=== PATIENT | male | born 1970 | race Caucasian/White ===

== ENCOUNTER 2024-03-07 23:42 | Emergency (ER) | payer OTHER ==
[~2024-03-07] VITALS: Ht 182.8 cm; Wt 81.6 kg
[~2024-03-07 23:42] MED LIST: FLOMAX0.4 MG PO; HYDROCODONE BIT1 T11 PO; MOTRIN600 MG PO; NKHM PO; NORCO 325 MG-51 TAB PO
[2024-03-08 00:15] LABS: BILIRUBIN Negative (Negative); BLOOD Negative (Negative); CLARITY Clear (Clear); COLOR Yellow (Yellow); GLUCOSE Negative (Negative); KETONE Trace (Negative); LEUKO ESTERASE Negative (Negative); NITRITE Negative (Negative); PH 5.5 (4.5-8.0); SPECIFIC GRAVITY 1.025 (1.001-1.030)
[2024-03-08 00:26] LABS: RBC 0-2 rbc/hpf (0-2); WBC 0-2 wbc/hpf (0-5)
[2024-03-08] MEDS ORDERED: AZITHROMYCIN 250 MG TAB PO ONE (00:35)
== END 2024-03-08 00:47 | disposition home or self-care (01) ==
LOC: ED 23:42
PROVIDERS: Internal Medicine
DX: A59.9 Trichomoniasis, unspecified (principal)

== ENCOUNTER 2024-06-06 03:51 | Inpatient (IN) | payer OTHER ==
[~2024-06-06] VITALS: Ht 180.3 cm; Wt 81.8 kg
[2024-06-06 03:58] VITALS: BP 95/50
[2024-06-06 04:42] LABS: BASO # 0.1 10*3/uL (0.0-0.1); EOS # 0.5 10*3/uL (0.0-0.4); EOS % 6.3 % (1.0-4.0); HEMATOCRIT 40.4 % (42.0-52.0); MEAN CELL VOLUME 95.1 fl (80.0-94.0); MEAN CORPUSCULAR HGB 31.1 pg (27.0-31.0); MEAN CORPUSCULAR HGB CONC 32.7 g/dl (33.0-37.0); MEAN PLATELET VOLUME 9.2 fl (9.6-12.3); MONO # 0.6 10*3/uL (0.1-1.0); MONO % 8.2 % (3.0-9.0); NEUT # 4.9 10*3/uL (2.3-7.9); NEUT % 68.5 % (47.0-73.0); PLATELET COUNT AUTOMATED 260 10*3/uL (130-400); RED BLOOD COUNT 4.25 10*6/uL (4.50-5.90); RED CELL DISTRI WIDTH 12.1 % (0-14.5); WHITE BLOOD COUNT 7.1 10*3/uL (4.8-10.8)
[2024-06-06] MEDS ORDERED: Vancomycin Hydrochloride 250 ML IV ONE (05:00)
[2024-06-06] MEDS ORDERED: diphenhydrAMINE hydrochloride 50 MG/ML VIAL IV ONE (05:00)
[2024-06-06] MEDS ORDERED: Piperacillin Sodium/Tazobact 50 ML IV ONE (05:00)
[2024-06-06 05:06] LABS: BUN 17 mg/dl (9-23); CHLORIDE 104 mmol/L (98-107); POTASSIUM 4.1 mmol/L (3.4-5.1)
[2024-06-06 05:30] LABS: BILIRUBIN Negative (Negative); BLOOD Negative (Negative); CLARITY Clear (Clear); COLOR Yellow (Yellow); GLUCOSE Negative (Negative); KETONE Negative (Negative); LEUKO ESTERASE Negative (Negative); NITRITE Negative (Negative); PH 5.5 (4.5-8.0); SPECIFIC GRAVITY 1.025 (1.001-1.030); UROBILINOGEN 0.2 E.U./dl (0.0-1.0)
[2024-06-06 05:42] LABS: BACTERIA 1+; CALCIUM OXALATE CRYSTALS 1+
[2024-06-06 07:12] VITALS: BP 108/54
[2024-06-06 11:10] VITALS: BP 133/86
[2024-06-06 11:50] VITALS: BP 138/92
[2024-06-06] MEDS ORDERED: BISACODYL 10 MG SUPP R PRN (12:50)
[2024-06-06] MEDS ORDERED: Ondansetron Hydrochloride 4 MG/2 ML VIAL IV PRN (12:50)
[2024-06-06] MEDS ORDERED: Magnesium Hydroxide 30 ML UDC PO PRN (12:50)
[2024-06-06] MEDS ORDERED: BISACODYL 5 MG TAB PO PRN (12:50)
[2024-06-06] MEDS ORDERED: ACETAMINOPHEN 325 MG TAB PO PRN (12:50)
[2024-06-06] MEDS ORDERED: ACETAMINOPHEN 650 MG SUPP R PRN (12:50)
[2024-06-06] MEDS ORDERED: Vancomycin Hydrochloride 1,000 MG in SODIUM CHLORIDE 0.9% 250 ML IV SCH (12:55)
[2024-06-06] MEDS ORDERED: Piperacillin Sodium/Tazobact 50 ML IV SCH (13:00)
[2024-06-06] MEDS ORDERED: SILVER SULFADIAZINE 25 GM TUBE T SCH (13:15)
[2024-06-06] MEDS ORDERED: Lidocaine Hydrochloride 3% 30 GM CREAM T PRN (13:20)
[2024-06-06] MEDS ORDERED: SILVER SULFADIAZINE 25 GM TUBE T PRN (13:20)
[2024-06-06] MEDS ORDERED: Lidocaine Hydrochloride 3% 30 GM CREAM T SCH (14:00)
[2024-06-06 16:00] VITALS: BP 126/81
[2024-06-06] MEDS ORDERED: VANCOMYCIN/WATER FOR INJ (PEG) 300 ML IV SCH (16:00)
[2024-06-06 20:00] VITALS: BP 112/64
[2024-06-07] VITALS: BP 139/92
[2024-06-07 06:31] LABS: BASO # 0.1 10*3/uL (0.0-0.1); BASO % 0.7 % (0.0-1.0); EOS # 0.5 10*3/uL (0.0-0.4); EOS % 6.8 % (1.0-4.0); HEMATOCRIT 41.9 % (42.0-52.0); MEAN CELL VOLUME 93.7 fl (80.0-94.0); MEAN CORPUSCULAR HGB 31.3 pg (27.0-31.0); MEAN CORPUSCULAR HGB CONC 33.4 g/dl (33.0-37.0); MEAN PLATELET VOLUME 9.8 fl (9.6-12.3); MONO # 0.5 10*3/uL (0.1-1.0); MONO % 6.3 % (3.0-9.0); NEUT # 5.4 10*3/uL (2.3-7.9); NEUT % 72.4 % (47.0-73.0); PLATELET COUNT AUTOMATED 273 10*3/uL (130-400); RED BLOOD COUNT 4.47 10*6/uL (4.50-5.90); RED CELL DISTRI WIDTH 12.1 % (0-14.5); WHITE BLOOD COUNT 7.5 10*3/uL (4.8-10.8)
[2024-06-07 07:35] LABS: ALKALINE PHOSPHATASE 70 U/L (46-116); BUN 17 mg/dl (9-23); CHLORIDE 105 mmol/L (98-107); CHOLESTEROL 151 mg/dL (<200); FREE T4 1.09 ng/dl (0.89-1.76); LDL CHOLESTEROL 68 mg/dL (9-159); POTASSIUM 4.1 mmol/L (3.4-5.1); SGPT/ALT 16 U/L (5-49); TOTAL PROTEIN 6.2 gm/dL (6.0-8.0); TRIGLYCERIDES 130 mg/dl (<150)
[2024-06-07 08:00] VITALS: BP 129/93
[2024-06-07] MEDS ORDERED: Enoxaparin Sodium 40 MG/0.4 ML SYR SC SCH (10:00)
[2024-06-07 12:00] VITALS: BP 149/84
[2024-06-07] MEDS ORDERED: PREDNISONE20 M1 PO (12:19)
[2024-06-07] MEDS ORDERED: VIBRAMYCIN100 MG PO (12:19)
== END 2024-06-07 13:55 | disposition home or self-care (01) | DRG 603 ==
LOC: ED 03:51 → EDHOLD 10:50 → 5E 11:27
PROVIDERS: Emergency Medicine; Student in an Organized Health Care Education/Training Program; ADMIT Internal Medicine; ATTEND Internal Medicine
DX: L03.314 Cellulitis of groin (principal); N49.2 Inflammatory disorders of scrotum; D64.9 Anemia, unspecified; R73.9 Hyperglycemia, unspecified; F17.210 Nicotine dependence, cigarettes, uncomplicated; L25.9 Unspecified contact dermatitis, unspecified cause; Z71.6 Tobacco abuse counseling